=== PATIENT | female | born 1980 | race Caucasian/White ===

== ENCOUNTER → 2023-12-20 | Outpatient (CLI) | payer OTHER, MEDICAID ==
[~2023-12-20] MED LIST: ADDERALL PO; ADDERALL10 MG PO; ALAVERT10 MG PO; ALLEGRA 180MG180 MG PO; BELSOMRA20 MG PO; CATAPRES 0.1MG0.1 MG PO; DILANTIN 100MG100 MG PO; GLUCOPHAGE500 MG/TAB PO; KLONOPIN 1MG1 MG PO; LAMICTAL XR100 MG PO; LEVAQUIN 5500 MG/TA1 PO; LIPITOR 40MG TA40 MG PO; LYRICA 150MG C150 MG PO; MIRALAX PA17 GM/Dose PO; MOBIC15 MG PO; PROZAC 10MG10 MG PO; PYRIDIUM 100MG100 MG PO; ROBAXIN 50500 MG/TAB PO; ROBITUSSIN A-C S1 M1 PO; SINGULAIR 110 MG/TAB PO; TYLENOL 325MG325 MG PO; VITAMIN D31000 I1 PO; ZESTRIL 5MG5 MG PO; ZYRTEC-D 5 MG-11 TER PO; Zonegran; [UNRECOGNIZED DRUG - CODE]
== END ==
LOC: COL.RAD 15:16
DX: N20.1 Calculus of ureter (principal)